=== PATIENT | male | born 1960 | race Hispanic/Latino ===

== ENCOUNTER 2021-08-30 09:56 | Outpatient (CLI) | payer OTHER | END 2021-08-30 09:57 | disposition home or self-care (01) | LOC: ECHO 09:56 | PROVIDERS: ATTEND Internal Medicine | DX: I27.20 Pulmonary hypertension, unspecified (principal); I08.1 Rheumatic disorders of both mitral and tricuspid valves | CPT/HCPCS: 93306; C8929 ==

== ENCOUNTER 2021-09-30 10:57 | Outpatient (CLI) | payer OTHER ==
--- NOTE | 2021-09-30 13:11 | Ultrasound Report ---
ULTRASOUND THYROID INDICATION / CLINICAL INFORMATION: NEWLY DIAGNOSED HYPOTHYROIDISM, DIFFUSE ENLARGEMENT. COMPARISON: None available. FINDINGS: RIGHT LOBE: Size = 4.1 cm. LEFT LOBE: Size = 4.6 cm. ISTHMUS: Thickness = 0.4 cm. APPEARANCE: Normal. SMALL NODULES < 1 cm: None. NODULES >= 1 cm or with SUSPICIOUS FEATURES: - NODULE # 1 - Location: Left Mid - Maximum Size (cm): 2.1 - Significant Change (>= 20% in 2 dim. & inc. >= 2mm): No prior study - Composition: Solid = 2 points - Echogenicity: Hyperechoic or Isoechoic = 1 point - Shape: Hpuch-[id number] = 0 points - Margin: Smooth = 0 points - Echogenic Foci: None = 0 points - Additional Echogenic Foci: None = 0 points - Additional Findings: None. - ACR TI-RADS Score / Category = 3 points / TI-RADS 3 - No additional suspicious thyroid nodules. LYMPH NODES: No abnormal lymph nodes. PARATHYROID GLANDS: No abnormal parathyroid glands. ADDITIONAL FINDINGS: None. IMPRESSION: 1. Suspicious thyroid nodule(s). 2. Most Suspicious Nodule (if any): Mid left lobe thyroid nodule is 2.1 cm and TI-RADS 3 3. 2nd Most Suspicious Nodule (if any): None. ACR TI-RADS Thyroid Nodule Recommendations TI-RADS 1 (0 pts) -- Benign. No Fine Needle Aspirate biopsy (FNA) or follow-up. TI-RADS 2 (1-2 pts) -- Not Suspicious. No FNA or follow-up. TI-RADS 3 (3 pts) -- Mildly Suspicious. If >2.5 cm: FNA. If >1.5 cm: Follow up at 1, 3, 5 years. TI-RADS 4 (4-6 pts) -- Moderately Suspicious. If >1.5 cm: FNA. If >1 cm: Follow up at 1, 2, 3, 5 year s. TI-RADS 5 (7+ pts) -- Highly Suspicious. If >1 cm: FNA. If > 0.5 cm: Follow annually for 5 years. REFERENCE: ACR Thyroid Imaging, Reporting and Data System (TI-RADS): White Paper of the ACR TI-RADS C ommittee. J AM Naima Radiol 2017;14:587-595. NOTE: Nodules < 1 cm do not typically require follow-up or FNA unless there are suspicious features. NOTE: Nodule size maximum dimension determines whether a given lesion should be biopsied or followed. NOTE: If multiple nodules meet criteria for FNA, only the two (2) most suspicious nodules should be b iopsied. In addition, FNA of any suspicious cervical nodes should be biopsied. NOTE: Predominantly Cystic nodules and Spongiform nodules, composed predominantly (>50%) of small cys tic spaces, are considered benign (TI-RADS 1) regardless of other criteria. Signer Name: Brian Vera MD Signed: 09/30/2021 1:07 PM Workstation Name: [id number]
== END 2021-09-30 10:58 | disposition home or self-care (01) ==
LOC: US 10:57
PROVIDERS: ATTEND Psychiatry & Neurology Psychiatry
DX: E03.9 Hypothyroidism, unspecified (principal)
CPT/HCPCS: 76536